=== PATIENT | female | born 1960 | race Caucasian/White ===

== ENCOUNTER → 2020-12-25 | Outpatient (CLI) | payer BC ==
--- NOTE | 2020-12-26 21:36 | MR ---
EXAMINATION TYPE: MR knee LT wo con DATE OF EXAM: 12/25/2020 COMPARISON: Outside radiograph 12/04/2020 HISTORY: 60-year-old female Left knee pain TECHNIQUE: Multiplanar, multisequence imaging of the left knee is performed without IV contrast. FINDINGS: The ACL and PCL are intact. There is diffuse thickening and some edematous change of the MCL. No discrete tear, however, is ident ified. The LCL complex is intact though it joint fluid communicating along the popliteus tendon sheath. There is a degenerative multidirectional tear involving the posterior horn of the medial meniscus ext ending to involve the body of the medial meniscus. There is a 1 cm parameniscal cyst at the junction of the posterior horn and body. The meniscal body is mildly extruded. There is degenerative spurring in the medial compartment with a subchondral marrow signal changes cornel ng the mid peripheral aspect of the medial compartment and moderate irregular cartilage loss along th e mid weightbearing aspect as well as the mid peripheral aspect of the joint. Degenerative signal within the anterior horn of the lateral. Suspected subtle oblique tear suspected subtle oblique undersurface tear involving the body of the lateral meniscus. Lateral meniscus is part ially discoid. There is moderate thinning of posterior weightbearing aspect of lateral femoral condyle articular car tilage. No high-grade focal chondral defect is seen. There appears to be complete loss of articular cartilage along the medial patellar facet and addition al [id number] irregular cartilage loss along the medial trochlear facet and mid trochlear groov e. Mild to moderate thinning along the lateral patellar facet. Extensor mechanism is intact. Nonspecific anterior soft tissue swelling. There is mild edema within t he suprapatellar fat pad which is nonspecific but may be seen in the setting of an impingement syndro me. Small knee joint effusion. There is a small, multilocular Huang's cyst measuring 4.7 x 2.6 cm. Normal popliteal artery anatomy. Mild generalized muscle atrophy. No suspicious bone marrow replacement. IMPRESSION: 1. Prominent grade 1 MCL sprain with edematous thickening throughout the ligament. 2. Complex degenerative tear involving the posterior horn of the medial meniscus extending to involve the body of the medial meniscus. 1 cm parameniscal cyst at the junction of the posterior horn and dashawn dy. 3. Moderate medial compartmental osteoarthrosis. 4. Oblique undersurface tear body of the lateral meniscus. 5. Additional moderate overall patellofemoral compartment osteoarthrosis with high-grade cartilage lo ss along the entire medial patellar facet. 6. Small knee joint effusion and a small 4.7 x 2.6 cm Huang's cyst.
== END | disposition home or self-care (01) ==
LOC: RADMRIMAIN 11:28
PROVIDERS: ATTEND Orthopaedic Surgery
DX: M23.632 Other spontaneous disruption of medial collateral ligament of left knee (principal); M23.322 Other meniscus derangements, posterior horn of medial meniscus, left knee; M23.022 Cystic meniscus, posterior horn of medial meniscus, left knee; M17.12 Unilateral primary osteoarthritis, left knee; M23.362 Other meniscus derangements, other lateral meniscus, left knee

== ENCOUNTER → 2021-01-11 | Outpatient (CLI) | payer BC ==
[2021-01-11 11:08] LABS: Basophils # (A) 0.1 k/uL (0-0.2); Basophils % (A) 1 %; Eosinophils # (A) 0.1 k/uL (0-0.7); Eosinophils % (A) 1 %; HCT 46.5 % (34.0-46.0); Lymphocytes # (A) 1.7 k/uL (1.0-4.8); Lymphocytes % (A) 23 %; MCH 30.9 pg (25.0-35.0); MCHC 32.2 g/dL (31.0-37.0); MCV 96.1 fL (80.0-100.0); Mean Platelet Volume 7.2; Monocytes # (A) 0.5 k/uL (0-1.0); Monocytes % (A) 6 %; Neutrophils # (A) 5.2 k/uL (1.3-7.7); Neutrophils % (A) 68 %; Platelet Count 292 k/uL (150-450); RBC 4.84 m/uL (3.80-5.40); RDW 12.7 % (11.5-15.5); WBC 7.7 k/uL (3.8-10.6)
[2021-01-11 11:23] LABS: Potassium 4.6 mmol/L (3.5-5.1)
== END | disposition home or self-care (01) ==
LOC: LABPAT 09:59
PROVIDERS: ATTEND Orthopaedic Surgery
DX: Z01.818 Encounter for other preprocedural examination (principal); M23.92 Unspecified internal derangement of left knee; Z22.322 Carrier or suspected carrier of Methicillin resistant Staphylococcus aureus
CPT/HCPCS: 36415; 80051; 85025; 93005

== ENCOUNTER 2021-01-24 12:48 | Day surgery (SDC) | payer BC ==
[2021-01-21 15:21] VITALS: BMI 38.2
--- NOTE | 2021-01-23 17:05 | HP ---
HISTORY AND PHYSICAL DATE OF SURGERY: 01/24/2021 Sonia Keita is a 60-year-old patient seen with progressive left knee pain. We discussed options for treatment. She elected to proceed with left knee arthroscopy. Consent was obtained. PAST MEDICAL HISTORY: Osteoarthritis. PAST SURGICAL HISTORY: section, tonsillectomy, bowel surgery, cyst excision. DAILY MEDICATIONS: Multivitamins. ALLERGIES: None. SOCIAL HISTORY: She denies tobacco use. PHYSICAL EVALUATION OF THE LEFT KNEE: Range of motion 0-125. Mild to moderate effusion. Tenderness medial joint line. Tenderness lateral joint line. Positive medial Geovanni's. Positive lateral Geovanni's. Ligaments stable. Hip rotation without pain. Distal neurovascular exam intact. LEFT KNEE RADIOGRAPHS: Left knee radiographs revealed osteoarthritic changes. MRI left knee revealed a complex medial meniscal tear, undersurface lateral meniscal tear, osteoarthritis and Huang cyst. IMPRESSION: Internal derangement of left knee with medial and lateral meniscal tears. PLAN: Left knee arthroscopy with partial meniscectomy and debridement. MMODL / IJN: [id number] /
[~2021-01-24 12:48] MED LIST: DEXAMETHASONE SOD PHOSPHATE 4 MG/ML 1 ML VIAL IV ONE; LACTATED RINGERS 1,000 ML IV SCH; ONDANSETRON 4 MG/2 ML VIAL IVP ONE
[2021-01-24] MEDS ORDERED: LIDOCAINE 1% (10MG/ML) FOR IV START INTRADERMA ONE (13:30)
[2021-01-24] MEDS ORDERED: MIDAZOLAM 2 MG/2 ML VIAL IV ONE (13:40)
[2021-01-24] MEDS ORDERED: SUCCINYLCHOLINE CHLORIDE 100 MG/5 ML SYR IV ONE (14:44)
[2021-01-24] MEDS ORDERED: MIDAZOLAM 2 MG/2 ML VIAL ONE (14:44)
[2021-01-24] MEDS ORDERED: PROPOFOL 10 MG/ML 20 ML VIAL IV ONE (14:44)
[2021-01-24] MEDS ORDERED: fentaNYL (PF) 50 MCG/ML 2 ML AMP ONE (14:44)
[2021-01-24] MEDS ORDERED: LIDOCAINE 1% INJ 10MG/ML (20 ML MDV) ONE (14:44)
[2021-01-24] MEDS ORDERED: BUPIVACAINE (PF) 0.25% 30 ML VIAL INTRAARTIC ONE (14:44)
--- NOTE | 2021-01-24 15:37 | P.OP ---
Date of Procedure: 01/24/21 Preoperative Diagnosis: Internal derangement left knee Postoperative Diagnosis: 1. Complex tear medial meniscus left knee 2. Grade 2 chondromalacia medial femoral condyle left knee 3. Reactive synovitis medial, lateral and suprapatellar compartments left knee Procedure(s) Performed: 1. Arthroscopic partial medial meniscectomy left knee 2. Arthroscopic chondroplasty medial femoral condyle left knee 3. Arthroscopic partial synovectomy medial, lateral and suprapatellar compartments left knee Anesthesia: GETA, local Surgeon: Devon Castañeda Estimated Blood Loss (ml): 5 Pathology: none sent Condition: stable Disposition: PACU Indications for Procedure: 60-year-old patient seen with progressive left knee pain. After treatment options were discussed, she elected to proceed with arthroscopy. Operative Findings: See description of procedure Description of Procedure: Patient was taken to the operative suite. Patient underwent a general anesthetic by the department of anesthesia. Patient was given preoperative antibiotics. The left lower extremity was placed in a well-padded arthroscopic leg hernandez. The left leg was prepped and draped in the normal sterile orthopedic fashion. A lateral parapatellar and suprapatellar incision was made. Trochars were inserted. Arthroscopy was initiated. Suprapatellar pouch revealed diffuse thick reactive synovitis. The patellofemoral joint appeared to articulate congruently. There was grade 1 chondromalacia of the patella with no significant osteochondral tears present. The scope was guided into the medial gutter. No loose bodies or plica were identified. The scope was then guided into the medial compartment. A medial parapatellar incision was made. Trocar inserted followed by probe. There was a complex tear involving the posterior horn of the medial meniscus. There were grade 2 chondromalacia changes of the medial femoral condyle with some osteochondral flap tears present. There was thick reactive synovitis anteriorly. I performed a partial medial meniscectomy getting down to stable meniscal tissue. I performed a chondroplasty of the medial femoral condyle getting down to stable osteochondral tissue. I performed a partial synovectomy decompressing the thick reactive synovitis. The residual meniscus was not probed and it was stable. The residual osteochondral surface of the femoral condyle was stable. There was good decompression of the synovitis. Scope and probe were then guided into the intercondylar notch. Cruciates were identified, probed and found to be stable. The scope and probe were then guided into lateral compartment. There was some mild superficial fraying of the posterior horn lateral meniscus. There was no significant chondromalacia involving lateral compartment. There was some thick reactive synovitis anteriorly. I introduced a motorized shaver and debrided out the superficial fraying a lateral meniscus and I performed a partial synovectomy decompressing the thick reactive synovitis. The shaver was removed. There was good decompression of the synovitis. The scope was in guided back into the suprapatellar compartment. I introduced a motorized shaver into the suprapatellar compartment. I debrided some piecemeal fragments of meniscus I encountered. I performed a partial synovectomy decompressing the thick reactive synovitis within the suprapatellar compartment. The shaver was removed. There was good decompression of the synovitis. I now took one more look around the entire knee, no residual debris. Instruments were now removed from the joint. The joint was infiltrated with .25% Marcaine. I repaired the portal sites with nylon suture. Sterile dressings were applied. The patient was placed into a BIN hose. No tourniquet was utilized. The patient was awakened, transferred to a bed and taken to recovery stable satisfactory condition.
[2021-01-24 15:38] VITALS: TEMP 96.8
[2021-01-24] MEDS: HYDROmorphone 0.5 MG/0.5 ML SYRINGE IVP PRN ×2 (15:51→16:15)
[2021-01-24] MEDS ORDERED: METOPROLOL TARTRATE 5 MG/5 ML VIAL IVP ONE ×2 (15:58→16:00)
[2021-01-24 16:40] VITALS: RESP 18
[2021-01-24 17:13] VITALS: BP 128/76; PULSE 80
== END 2021-01-24 17:15 | disposition home or self-care (01) ==
LOC: OR 12:48
PROVIDERS: ATTEND Orthopaedic Surgery
DX: M23.204 Derangement of unspecified medial meniscus due to old tear or injury, left knee (principal); M22.42 Chondromalacia patellae, left knee; M65.862 Other synovitis and tenosynovitis, left lower leg; M19.90 Unspecified osteoarthritis, unspecified site; Z98.891 History of uterine scar from previous surgery; Z98.890 Other specified postprocedural states; E66.9 Obesity, unspecified; Z68.39 Body mass index [BMI] 39.0-39.9, adult
CPT/HCPCS: 29881; 29876; J2250; J1100; J0690; J2405; J2001; J3010; J0330; J2704; J1170